=== PATIENT | female | born 1945 | race Caucasian/White ===

== ENCOUNTER 2017-12-31 15:54 | Observation (INO) | payer MEDICARE, OTHER ==
[~2017-12-31] VITALS: Ht 152.4 cm; Wt 78.0 kg
[~2017-12-31 15:54] MED LIST: AMLO5TAB2 PO; ASPI81TA81 PO; CEPH-460 PO; CREON PO; CYMB60CA PO; DIOV320T3 PO; FURO20TA PO; GABA300C5 PO; HUMALOG IMPLANPUMP; KLOR10TA PO; LEVO25TA4 PO; MULT1TAB84 PO; OMEP40CA2 PO; SPIR25TA PO; TIMO0.2517; TRAV0.00 EACH EYE; VITA400T2; [UNRECOGNIZED DRUG - SUPPLY]
[2017-12-31 16:16] VITALS: BP 156/77; PULSE 85; RESP 15; TEMP 97.6; O2SAT 96
[2017-12-31 16:52] LABS: AUTOMATED NEUTROPHIL # 7.2 TH/MM3 (1.8-7.7); BASOPHIL # 0.1 TH/MM3 (0-0.2); BASOPHIL % 1.1 % (0.0-2.0); EOSINOPHIL # 0.5 TH/MM3 (0-0.4); EOSINOPHIL % 4.2 % (0.0-4.0); LYMPH % 15.6 % (9.0-44.0); LYMPHOCYTE # 1.7 TH/MM3 (1.0-4.8); MEAN CELL VOLUME 86.2 FL (80.0-100.0); MEAN CORPUSCULAR HEMOGLOBIN 28.1 PG (27.0-34.0); MEAN CORPUSCULAR HGB CONC 32.6 % (32.0-36.0); MEAN PLATELET VOLUME 9.7 FL (7.0-11.0); MONO % 12.7 % (0.0-8.0); MONOCYTE # 1.4 TH/MM3 (0-0.9); NEUT % 66.4 % (16.0-70.0); PLATELET COUNT 363 TH/MM3 (150-450); RED BLOOD COUNT 5.33 MIL/MM3 (4.00-5.30); RED CELL DISTRIBUTION WIDTH 15.2 % (11.6-17.2); WHITE BLOOD COUNT 10.9 TH/MM3 (4.0-11.0)
--- NOTE | 2017-12-31 17:14 | RADRPT ---
EXAM DATE/TIME: 12/31/2017 16:45 [place] COMPARISON: No previous studies available for comparison. INDICATIONS : Cold symptoms. MEDICAL HISTORY : None. SURGICAL HISTORY : None. ENCOUNTER: Initial ACUITY: 1 day PAIN SCORE: 0/10 LOCATION: Bilateral chest FINDINGS: There is some patchy airspace disease in the right lung with peribronchial thickening . Also peribron chial thickening on the left. No effusion. No pneumothorax. Mildly tortuous aorta. CONCLUSION: 1. Scattered subsegmental air space disease in the lungs, with only right upper lobe with peribronchi al thickening most characteristic of a mild bronchopneumonia/bronchitis. Ramiro De MD on December 31, 2017 at 17:10 Board Certified Radiologist. This report was verified electronically.
--- NOTE | 2017-12-31 17:19 | PD ---
HPI Chief Complaint: Cold / Flu Symptoms Time Seen by Provider: 17:12 Travel History International Travel<30 days: No Contact w/Intl Traveler<30days: No Traveled to known affect area: No History of Present Illness HPI 72-year-old female with history of hypertension, A. fib, diabetes, pancreatectomy, presents emergency department for evaluation of cough and chest congestion worsening over the last 7-10 days. Patient thought she initially just had a cold however over the last 2-3 days she has become more short of breath and developed a chest pain and tightness, mostly associated with coughing. She has had no fever but has been chilled. She has not followed up with her primary care provider. Denies any nausea, vomiting, diarrhea. Patient has no other symptoms to report. PFSH Past Medical History Atrial Fibrillation: Yes Coronary Artery Disease: Yes Diabetes: Yes Social History Tobacco Use: No Allergies-Medications (Allergen,Severity, Reaction): Coded Allergies: No Known Allergies (Verified Allergy, Unknown, 12/31/17) Reported Meds & Prescriptions Reported Meds & Active Scripts Active Tessalon Perles (Benzonatate) 100 Mg Cap 100 Mg PO TID PRN Proair Hfa 8.5 GM Inh (Albuterol Sulfate) 90 Mcg/Act Aer 2 Puff INH Q4H PRN 108 mcg/actuation Zithromax Z-Felipe (Azithromycin) 250 Mg Dspk 250 Mg PO DIRECTED 500 MG (2 tabs) day 1, then 1 tab days 2-5. Cymbalta DR (Duloxetine HCl) 60 Mg Capdr 60 Mg PO DAILY Gabapentin 300 Mg Cap 900 Mg PO HS Reported Multiple Vitamin 1 Tab 1 Tab PO DAILY Klor-Con M20 (Potassium Chloride Microencaps) 20 Meq Tab 20 Meq PO DAILY Diovan (Valsartan) 320 Mg Tab 320 Mg PO DAILY Humalog Inj (Insulin Human Lispro) 1,000 Unit/10 Ml Vial 1-9 Units IMPLANPUMP ACHS PER SLIDING SCALE Amlodipine (Amlodipine Besylate) 5 Mg Tab 5 Mg PO DAILY Omeprazole 40 Mg Cap 40 Mg PO DAILY Travatan Z Opth Drops (Travoprost) 0.004 % Soln 1 Drop EACH EYE HS Levothyroxine (Levothyroxine Sodium) 25 Mcg Tab 25 Mcg PO DAILY Aspir-81 (Aspirin) 81 Mg Tabdr 81 Mg PO DAILY [aquadex] DAILY [creon 5] 1 Cap PO TID Spironolactone 25 Mg Tab 25 Mg PO DAILY Review of Systems Except as stated in HPI: all other systems reviewed are Neg Physical Exam Narrative GENERAL: Well-nourished female patient, in no acute distress SKIN: Focused skin assessment warm/dry. HEAD: Atraumatic. Normocephalic. EYES: Pupils equal and round. No scleral icterus. No injection or drainage. ENT: No nasal bleeding or discharge. Mucous membranes pink and moist. Mild erythematous pharynx. NECK: Trachea midline. No JVD. CARDIOVASCULAR: Regular rate and rhythm. RESPIRATORY: No accessory muscle use. Diminished, coarse breath sounds equal bilaterally. GASTROINTESTINAL: Abdomen soft, non-tender, nondistended. Hepatic and splenic margins not palpable. MUSCULOSKELETAL: No obvious deformities. No clubbing. No cyanosis. 2+ bilateral lower extremity edema which patient states is chronic over the last 2 + years. NEUROLOGICAL: Awake and alert. No obvious cranial nerve deficits. Motor grossly within normal limits. Normal speech. PSYCHIATRIC: Appropriate mood and affect; insight and judgment normal. Data Data Last Documented VS Vital Signs Date Time Temp Pulse Resp B/P (MAP) Pulse Ox O2 Delivery O2 Flow Rate FiO2 12/31/17 17:29 83 20 97 Room Air 12/31/17 17:29 173/87 (115) 12/31/17 16:16 97.6 Orders Orders Electrocardiogram (12/31/17 16:18) Complete Blood Count With Diff (12/31/17 16:18) Basic Metabolic Panel (Bmp) (12/31/17 16:18) Ckmb (Isoenzyme) Profile (12/31/17 16:18) Troponin I (12/31/17 16:18) Chest, Single Ap (12/31/17 16:18) Influenzae A/B Antigen (12/31/17 16:18) Albuterol-Ipratropium Neb (Duoneb Neb) (12/31/17 17:30) Azithromycin (Zithromax) (12/31/17 17:30) CKMB (12/31/17 16:30) CKMB% (12/31/17 16:30) Ketorolac Inj (Toradol Inj) (12/31/17 18:45) Labs Laboratory Tests Test 12/31/17 16:30 White Blood Count 10.9 TH/MM3 Red Blood Count 5.33 MIL/MM3 Hemoglobin 15.0 GM/DL Hematocrit 46.0 % Mean Corpuscular Volume 86.2 FL Mean Corpuscular Hemoglobin 28.1 PG Mean Corpuscular Hemoglobin Concent 32.6 % Red Cell Distribution Width 15.2 % Platelet Count 363 TH/MM3 Mean Platelet Volume 9.7 FL Neutrophils (%) (Auto) 66.4 % Lymphocytes (%) (Auto) 15.6 % Monocytes (%) (Auto) 12.7 % Eosinophils (%) (Auto) 4.2 % Basophils (%) (Auto) 1.1 % Neutrophils # (Auto) 7.2 TH/MM3 Lymphocytes # (Auto) 1.7 TH/MM3 Monocytes # (Auto) 1.4 TH/MM3 Eosinophils # (Auto) 0.5 TH/MM3 Basophils # (Auto) 0.1 TH/MM3 CBC Comment DIFF FINAL Differential Comment Blood Urea Nitrogen 18 MG/DL Creatinine 0.86 MG/DL Random Glucose 157 MG/DL Calcium Level 9.8 MG/DL Sodium Level 138 MEQ/L Potassium Level 4.6 MEQ/L Chloride Level 103 MEQ/L Carbon Dioxide Level 27.8 MEQ/L Anion Gap 7 MEQ/L Estimat Glomerular Filtration Rate 65 ML/MIN Total Creatine Kinase 131 U/L Creatine Kinase MB 1.2 NG/ML Troponin I LESS THAN 0.02 NG/ML MDM Medical Decision Making Medical Screen Exam Complete: Yes Emergency Medical Condition: Yes Medical Record Reviewed: Yes Differential Diagnosis Pneumonia versus influenza versus CHF versus pleuritic pain versus chest wall pain versus less likely ACS Narrative Course 72-year-old female presents emergency department for evaluation of cough and chest congestion with associated chest tightness worsening over the last 10 days more prominent over the last to 3 days. Patient appears well and without distress. Vital signs are stable. Laboratory Tests Test 12/31/17 16:30 White Blood Count 10.9 TH/MM3 Red Blood Count 5.33 MIL/MM3 Hemoglobin 15.0 GM/DL Hematocrit 46.0 % Mean Corpuscular Volume 86.2 FL Mean Corpuscular Hemoglobin 28.1 PG Mean Corpuscular Hemoglobin Concent 32.6 % Red Cell Distribution Width 15.2 % Platelet Count 363 TH/MM3 Mean Platelet Volume 9.7 FL Neutrophils (%) (Auto) 66.4 % Lymphocytes (%) (Auto) 15.6 % Monocytes (%) (Auto) 12.7 % Eosinophils (%) (Auto) 4.2 % Basophils (%) (Auto) 1.1 % Neutrophils # (Auto) 7.2 TH/MM3 Lymphocytes # (Auto) 1.7 TH/MM3 Monocytes # (Auto) 1.4 TH/MM3 Eosinophils # (Auto) 0.5 TH/MM3 Basophils # (Auto) 0.1 TH/MM3 CBC Comment DIFF FINAL Differential Comment Blood Urea Nitrogen 18 MG/DL Creatinine 0.86 MG/DL Random Glucose 157 MG/DL Calcium Level 9.8 MG/DL Sodium Level 138 MEQ/L Potassium Level 4.6 MEQ/L Chloride Level 103 MEQ/L Carbon Dioxide Level 27.8 MEQ/L Anion Gap 7 MEQ/L Estimat Glomerular Filtration Rate 65 ML/MIN Total Creatine Kinase 131 U/L Creatine Kinase MB 1.2 NG/ML Troponin I LESS THAN 0.02 NG/ML Chest x-ray CONCLUSION: 1. Scattered subsegmental air space disease in the lungs, with only right upper lobe with peribronchial thickening most characteristic of a mild bronchopneumonia/bronchitis. Discussed patient with continued physician. Patient will be discharged home with oral antibiotics. 1850 upon discharge, patient's states that he does not feel comfortable taking the patient home. He is concerned about her immunocompromise state. He discussed this with my attending physician who has discussed observation admission with him and what that means. He will contact [facility] for observation admission. Diagnosis Primary Impression: Pneumonia Qualified Codes: J18.1 - Lobar pneumonia, unspecified organism Referrals: Primary Care Physician Patient Instructions: Community Acquired Pneumonia (ED), General Instructions Additional Instructions: Humidified air may help to alleviate symptoms Follow up with primary care provider Return to ED with acute worsening of symptoms Med/Other Pt SpecificInfo: Prescription(s) given Scripts Benzonatate (Tessalon Perles) 100 Mg Cap 100 MG PO TID Y for COUGH, #30 CAP 0 Refills Prov: Tiffanie ChisholmP 12/31/17 Albuterol 8.5 GM Inh (Proair Hfa 8.5 GM Inh) 90 Mcg/Act Aer 2 PUFF INH Q4H Y for SHORTNESS OF BREATH, #1 INHALER 0 Refills 108 mcg/actuation Prov: Tiffanie ChisholmP 12/31/17 Azithromycin (Zithromax Z-Felipe) 250 Mg Dspk 250 MG PO DIRECTED for Infection, #1 DSPK 0 Refills 500 MG (2 tabs) day 1, then 1 tab days 2-5. Prov: Tiffanie Chisholm 12/31/17 Disposition: 01 DISCHARGE HOME Condition: Stable Tiffanie Chisholm Dec 31, 2017 17:19
[2017-12-31 17:24] LABS: BICARBONATE 27.8 MEQ/L (21.0-32.0); BLOOD UREA NITROGEN 18 MG/DL (7-18); CALCIUM 9.8 MG/DL (8.5-10.1); CHLORIDE 103 MEQ/L (98-107); CREATININE 0.86 MG/DL (0.50-1.00); GLOMERULAR FILTRATION RATE 65 ML/MIN (>89); GLUCOSE,RANDOM 157 MG/DL (74-106); SODIUM (NA) 138 MEQ/L (136-145)
[2017-12-31 17:28] LABS: TROPONIN I LESS THAN 0.02 NG/ML (0.02-0.05)
[2017-12-31 17:29] VITALS: BP 173/87; PULSE 77; RESP 20; O2SAT 96
[2017-12-31] MEDS ORDERED: AZITHROMYCIN 250 MG TAB PO ONE (17:30)
[2017-12-31] MEDS: RESP: ALBUTEROL 2.5 MG/IPRATROPIUM 0.5 MG NEB (SCH) INH ×2 (17:44→17:45)
[2017-12-31] MEDS ORDERED: KLOR20TA3 PO (18:07)
[2017-12-31] MEDS ORDERED: MULTTAB67 PO (18:07)
[2017-12-31] MEDS ORDERED: DIOV320T PO (18:07)
[2017-12-31] MEDS ORDERED: ALBUAER3 INH (18:34)
[2017-12-31] MEDS ORDERED: ZITHTAB PO (18:34)
[2017-12-31] MEDS ORDERED: BENZ100 PO (18:34)
[2017-12-31] MEDS ORDERED: KETOROLAC TROMETHAMINE 60 MG/2 ML (IM) VIAL IM ONE (18:45)
[2017-12-31 18:59] VITALS: BP 135/87; PULSE 74; RESP 18; O2SAT 97
[2017-12-31] MEDS ORDERED: KETOROLAC TROMETHAMINE 30 MG/ML (IVP) VIAL IV PUSH ONE (19:00)
[2017-12-31] MEDS ORDERED: NALOXONE HCL 0.4 MG/ML AMP IV PUSH PRN (19:45)
[2017-12-31] MEDS ORDERED: ONDANSETRON HCL 4 MG/2 ML VIAL IVP PRN (19:45)
[2017-12-31] MEDS ORDERED: ACETAMINOPHEN 325 MG TAB PO PRN (19:45)
[2017-12-31] MEDS ORDERED: SODIUM CHLORIDE 0.9% FLUSH 10 ML FLUSH IV FLUSH PRN (19:45)
[2017-12-31] MEDS: cefTRIAXone INJ 1,000 MG in SODIUM CHLORIDE 0.9% INJ 100 ML IV SCH (20:04)
--- NOTE | 2017-12-31 20:47 | HHI.HP ---
HPI Service [facility] Primary Care Physician Lizbet Higuera MD Admission Diagnosis PNA Diagnoses: Travel History International Travel<30 Days: No Contact w/Intl Traveler <30 Da: No Traveled to Known Affected Are: No History of Present Illness 72-year-old female with a past medical history significant for type 1 diabetes, hypertension, neuropathy, hypothyroidism and unspecified cardiac arrhythmia presents to the emergency department with evaluation of pneumonia symptoms. The patient has a history of multiple pneumonias requiring hospitalization. She reports she initially had upper respiratory symptoms that began on Monday. She states her symptoms worsen today with shortness of breath, productive cough and fever/chills. She reports chest pain that is worse with deep inspiration or coughing. She denies any nausea/vomiting/diarrhea. No lateralizing signs/ symptoms. Review of Systems Except as stated in HPI: all other systems reviewed are Neg Past Family Social History Past Medical History Type 1 diabetes mellitus with insulin pump Hypertension Neuropathy Hypothyroidism Unspecified cardiac arrhythmia Past Surgical History Islet cell transplant Hysterectomy Right knee surgery 2 Spinal fusion Cholecystectomy Reported Medications Reported Meds & Active Scripts Active Tessalon Perles (Benzonatate) 100 Mg Cap 100 Mg PO TID PRN Proair Hfa 8.5 GM Inh (Albuterol Sulfate) 90 Mcg/Act Aer 2 Puff INH Q4H PRN 108 mcg/actuation Zithromax Z-Felipe (Azithromycin) 250 Mg Dspk 250 Mg PO DIRECTED 500 MG (2 tabs) day 1, then 1 tab days 2-5. Cymbalta DR (Duloxetine HCl) 60 Mg Capdr 60 Mg PO DAILY Gabapentin 300 Mg Cap 900 Mg PO HS Reported Multiple Vitamin 1 Tab 1 Tab PO DAILY Klor-Con M20 (Potassium Chloride Microencaps) 20 Meq Tab 20 Meq PO DAILY Diovan (Valsartan) 320 Mg Tab 320 Mg PO DAILY Humalog Inj (Insulin Human Lispro) 1,000 Unit/10 Ml Vial 1-9 Units IMPLANPUMP ACHS PER SLIDING SCALE Amlodipine (Amlodipine Besylate) 5 Mg Tab 5 Mg PO DAILY Omeprazole 40 Mg Cap 40 Mg PO DAILY Travatan Z Opth Drops (Travoprost) 0.004 % Soln 1 Drop EACH EYE HS Levothyroxine (Levothyroxine Sodium) 25 Mcg Tab 25 Mcg PO DAILY Aspir-81 (Aspirin) 81 Mg Tabdr 81 Mg PO DAILY [aquadex] DAILY [creon 5] 1 Cap PO TID Spironolactone 25 Mg Tab 25 Mg PO DAILY Allergies: Coded Allergies: No Known Allergies (Verified Allergy, Unknown, 12/31/17) Family History Father with heart disease. Mother with diabetes mellitus. Social History Denies tobacco. Occasional alcohol. Denies illicit drugs. Physical Exam Vital Signs Vital Signs Date Time Temp Pulse Resp B/P (MAP) Pulse Ox O2 Delivery O2 Flow Rate FiO2 12/31/17 18:59 74 18 135/87 (103) 97 Room Air 12/31/17 17:29 83 20 97 Room Air 12/31/17 17:29 77 20 173/87 (115) 96 Room Air 12/31/17 16:16 97.6 85 15 156/77 (103) 96 Physical Exam GENERAL: female sitting up in bed SKIN: No rashes, ecchymoses or lesions. Cool and dry. HEAD: Atraumatic. Normocephalic. No temporal or scalp tenderness. EYES: Pupils equal round and reactive. Extraocular motions intact. No scleral icterus. No injection or drainage. ENT: Nose without bleeding, purulent drainage or septal hematoma. Throat without erythema, tonsillar hypertrophy or exudate. Uvula midline. Airway patent. NECK: Trachea midline. No JVD or lymphadenopathy. Supple, nontender, no meningeal signs. CARDIOVASCULAR: Regular rate and rhythm without murmurs, gallops, or rubs. RESPIRATORY: Bilateral wheezes and rhonchi. GASTROINTESTINAL: Abdomen soft, non-tender, nondistended. No hepato-splenomegaly , or palpable masses. MUSCULOSKELETAL: Extremities without clubbing, cyanosis, or edema. No joint tenderness, effusion, or edema noted. No calf tenderness. NEUROLOGICAL: Awake and alert. Cranial nerves II through XII intact. Motor and sensory grossly within normal limits. Normal speech. Laboratory Laboratory Tests Test 12/31/17 16:30 White Blood Count 10.9 Red Blood Count 5.33 Hemoglobin 15.0 Hematocrit 46.0 Mean Corpuscular Volume 86.2 Mean Corpuscular Hemoglobin 28.1 Mean Corpuscular Hemoglobin Concent 32.6 Red Cell Distribution Width 15.2 Platelet Count 363 Mean Platelet Volume 9.7 Neutrophils (%) (Auto) 66.4 Lymphocytes (%) (Auto) 15.6 Monocytes (%) (Auto) 12.7 Eosinophils (%) (Auto) 4.2 Basophils (%) (Auto) 1.1 Neutrophils # (Auto) 7.2 Lymphocytes # (Auto) 1.7 Monocytes # (Auto) 1.4 Eosinophils # (Auto) 0.5 Basophils # (Auto) 0.1 CBC Comment DIFF FINAL Differential Comment Blood Urea Nitrogen 18 Creatinine 0.86 Random Glucose 157 Calcium Level 9.8 Sodium Level 138 Potassium Level 4.6 Chloride Level 103 Carbon Dioxide Level 27.8 Anion Gap 7 Estimat Glomerular Filtration Rate 65 Total Creatine Kinase 131 Creatine Kinase MB 1.2 Troponin I LESS THAN 0.02 Date/Time Source Procedure Growth Status 12/31/17 16:30 Nasal Washing Influenza Types A,B Antigen (LARA) Pending Received Result Diagram: 12/31/17 1630 12/31/17 1630 Caprini VTE Risk Assessment Caprini VTE Risk Assessment: Mod/High Risk (score >= 2) Caprini Risk Assessment Model Point Value = 1 Point Value = 2 Point Value = 3 Point Value = 5 Age 41-60 Minor surgery BMI > 25 kg/m2 Swollen legs Varicose veins or History of unexplained or recurrent spontaneous Oral contraceptives or hormone replacement Sepsis (< 1 month) Serious lung disease, including pneumonia (< 1 month) Abnormal pulmonary function Acute myocardial infarction Congestive heart failure (< 1 month) History of inflammatory bowel disease Medical patient at bed rest Age 61-74 Arthroscopic surgery Major open surgery (> 45 min) Laparoscopic surgery (> 45 min) Malignancy Confined to bed (> 72 hours) Immobilizing plaster cast Central venous access Age >= 75 History of VTE Family history of VTE Factor V Leiden Prothrombin [id number] Lupus anticoagulant Anticardiolipin antibodies Elevated serum homocysteine Heparin-induced thrombocytopenia Other congenital or acquired thrombophilia Stroke (< 1 month) Elective arthroplasty Hip, pelvis, or leg fracture Acute spinal cord injury (< 1 month) Prophylaxis Regimen Total Risk Factor Score Risk Level Prophylaxis Regimen 0-1 Low Early ambulation 2 Moderate Order ONE of the following: *Sequential Compression Device (SCD) *Heparin 5000 units SQ BID 3-4 Higher Order ONE of the following medications: *Heparin 5000 units SQ TID *Enoxaparin/Lovenox 40 mg SQ daily (WT < 150 kg, CrCl > 30 mL/min) *Enoxaparin/Lovenox 30 mg SQ daily (WT < 150 kg, CrCl > 10-29 mL/min) *Enoxaparin/Lovenox 30 mg SQ BID (WT < 150 kg, CrCl > 30 mL/min) AND/OR *Sequential Compression Device (SCD) 5 or more Highest Order ONE of the following medications: *Heparin 5000 units SQ TID (Preferred with Epidurals) *Enoxaparin/Lovenox 40 mg SQ daily (WT < 150 kg, CrCl > 30 mL/min) *Enoxaparin/Lovenox 30 mg SQ daily (WT < 150 kg, CrCl > 10-29 mL/min) *Enoxaparin/Lovenox 30 mg SQ BID (WT < 150 kg, CrCl > 30 mL/min) AND *Sequential Compression Device (SCD) Assessment and Plan Assessment and Plan Assessment/plan: 1. Community-acquired pneumonia Chest x-ray significant for bronchopneumonia versus bronchitis, personally reviewed Patient wishes to stay in the hospital overnight because she is concerned she will decline Azithromycin/Rocephin DuoNeb's Anticipate discharge to home tomorrow 2. Type 1 diabetes mellitus with insulin pump Monitor blood glucose 3. Hypothyroidism/arrhythmia/neuropathy Continue home medications FEN Heart heathy diet Electrolytes: Monitor and replete when necessary Heparin Precious Wright MD Dec 31, 2017 20:47
[2017-12-31] MEDS: SODIUM CHLORIDE 0.9% FLUSH 10 ML FLUSH IV FLUSH SCH (21:00)
[2017-12-31 23:56] VITALS: BP 142/90; PULSE 78; RESP 18; TEMP 97.9; O2SAT 96
[2017-12-31] MEDS: HEPARIN SODIUM - SQ 10,000 UNITS/ML VIAL SQ SCH (23:56)
[2018-01-01] MEDS: HEPARIN SODIUM - SQ 10,000 UNITS/ML VIAL SQ SCH ×3 (05:38→21:29)
[2018-01-01 08:50] VITALS: BP 123/84; PULSE 76; RESP 16; TEMP 98.1; O2SAT 95
[2018-01-01] MEDS ORDERED: PNEUMOCOCCAL POLYVALENT INJ 25 MCG/0.5 ML SYR IM ONE (09:00)
[2018-01-01 10:40] LABS: AUTOMATED NEUTROPHIL # 5.8 TH/MM3 (1.8-7.7); BASOPHIL # 0.1 TH/MM3 (0-0.2); BASOPHIL % 0.7 % (0.0-2.0); EOSINOPHIL # 0.5 TH/MM3 (0-0.4); EOSINOPHIL % 5.1 % (0.0-4.0); HEMATOCRIT 45.4 % (35.0-46.0); HEMOGLOBIN 14.6 GM/DL (11.6-15.3); LYMPH % 20.6 % (9.0-44.0); LYMPHOCYTE # 1.9 TH/MM3 (1.0-4.8); MEAN CORPUSCULAR HEMOGLOBIN 27.7 PG (27.0-34.0); MEAN CORPUSCULAR HGB CONC 32.2 % (32.0-36.0); MEAN PLATELET VOLUME 9.4 FL (7.0-11.0); MONO % 11.5 % (0.0-8.0); MONOCYTE # 1.1 TH/MM3 (0-0.9); NEUT % 62.1 % (16.0-70.0); PLATELET COUNT 354 TH/MM3 (150-450); RED BLOOD COUNT 5.28 MIL/MM3 (4.00-5.30); RED CELL DISTRIBUTION WIDTH 14.8 % (11.6-17.2); WHITE BLOOD COUNT 9.4 TH/MM3 (4.0-11.0)
[2018-01-01] MEDS ORDERED: GLUCAGON 1 MG/ML VIAL OTHER PRN (10:45)
[2018-01-01] MEDS ORDERED: DEXTROSE 50% IN WATER 50 ML VIAL(D50) IV PUSH PRN (10:45)
[2018-01-01 11:01] LABS: BICARBONATE 25.2 MEQ/L (21.0-32.0); CALCIUM 9.2 MG/DL (8.5-10.1); CREATININE 0.7 MG/DL (0.50-1.00)
--- NOTE | 2018-01-01 11:24 | EKG ---
Date Performed: 12/31/2017 Time Performed: 17:25:32 PTAGE: 72 years EKG: Sinus rhythm LEFT ANTERIOR FASCICULAR BLOCK ABNORMAL ECG NO PREVIOUS TRACING DOCTOR: Fouzia Thakur Interpretating Date/Time 01/01/2018 11:22:53
[2018-01-01 11:39] VITALS: BP 154/83; PULSE 79; RESP 12; TEMP 98.4; O2SAT 92
[2018-01-01] MEDS ORDERED: INSULIN ASPART SUPPLEMENTAL SCALE SQ SCH (12:00)
[2018-01-01] MEDS: SODIUM CHLORIDE 0.9% FLUSH 10 ML FLUSH IV FLUSH SCH ×2 (12:14→21:27)
--- NOTE | 2018-01-01 14:43 | HHI.PR ---
Subjective Remarks In bed appears with sob and wheezing. Patient says she is coughing more and has yellow/greenish sputum/ Says she has chest pain with breathing from too much cough. No fever or chills overnight. Some nausea but able to keep down food. No v/d/c. Objective Vitals Vital Signs Date Time Temp Pulse Resp B/P (MAP) Pulse Ox O2 Delivery O2 Flow Rate FiO2 01/01/18 11:39 98.4 79 12 154/83 (106) 92 01/01/18 08:50 98.1 76 16 123/84 (97) 95 12/31/17 23:56 97.9 78 18 142/90 (107) 96 12/31/17 20:39 12/31/17 18:59 74 18 135/87 (103) 97 Room Air 12/31/17 17:29 83 20 97 Room Air 12/31/17 17:29 77 20 173/87 (115) 96 Room Air 12/31/17 16:16 97.6 85 15 156/77 (103) 96 I/O 12/31/17 12/31/17 12/31/17 01/01/18 01/01/18 01/01/18 07:00 15:00 23:00 07:00 15:00 23:00 Intake Total 100 ml Balance 100 ml Intake IV Total 100 ml # Voids 1 Result Diagram: 01/01/18 1018 01/01/18 1018 Imaging Last Impressions Chest X-Ray 12/31/17 1618 Signed Impressions: Service Date/Time: Sunday, December 31, 2017 16:45 - CONCLUSION: 1. Scattered subsegmental air space disease in the lungs, with only right upper lobe with peribronchial thickening most characteristic of a mild bronchopneumonia/bronchitis. Ramiro De MD Objective Remarks GENERAL: female sitting up in bed CARDIOVASCULAR: Regular rate and rhythm without murmurs, gallops, or rubs. RESPIRATORY: Bilateral wheezes and rhonchi. GASTROINTESTINAL: Abdomen soft, non-tender, nondistended. No hepato-splenomegaly , or palpable masses. MUSCULOSKELETAL: Extremities without clubbing, cyanosis, or edema. No joint tenderness, effusion, or edema noted. No calf tenderness. NEUROLOGICAL: Awake and alert. Cranial nerves II through XII intact. Motor and sensory grossly within normal limits. Normal speech. A/P Assessment and Plan Community-acquired pneumonia Pleuritic chest pain Chest x-ray significant for bronchopneumonia versus bronchitis, personally reviewed Patient wishes to stay in the hospital overnight because she is concerned she will decline Azithromycin/Rocephin Not improving. Add IS, DuoNeb's scheduled and PRN for sob/wheezing. Add Add mucinex Add tylenol /codein Monitor O2 sat, give O2 by NC if need to keep O2 sat > 94% Type 1 diabetes mellitus with insulin pump Monitor blood glucose Hypothyroidism/arrhythmia/neuropathy Continue home medications FEN Heart heathy diet Electrolytes: Monitor and replete when necessary Heparin Discussed with the patient, nurse, family at bedside Possible discharge tomorrow if improved Tiara Rooney MD Jan 01, 2018 14:43
[2018-01-01] MEDS ORDERED: ACETAMINOPHEN/CODEINE ELIX 120 MG/12 MG/5 ML CUP PO PRN (14:45)
[2018-01-01] MEDS ORDERED: RESP: ALBUTEROL 2.5 MG/IPRATROPIUM 0.5 MG NEB (PRN) NEB (14:45)
[2018-01-01] MEDS ORDERED: ENALAPRILAT 2.5 MG/2 ML VIAL IV PUSH PRN (15:00)
[2018-01-01 15:15] VITALS: BP 129/81; PULSE 86; RESP 12; TEMP 98.9; O2SAT 93
[2018-01-01] MEDS: amLODIPine BESYLATE 5 MG TAB PO SCH (15:53)
[2018-01-01] MEDS: ASPIRIN EC 81 MG TABEC PO SCH (15:53)
[2018-01-01] MEDS: PANTOPRAZOLE SOD 40 MG DELAYED RELEASE TAB PO SCH (15:53)
[2018-01-01] MEDS: DULoxetine HCl DR 60 MG CAP PO SCH (15:53)
[2018-01-01] MEDS: VALSARTAN 160 MG TAB PO SCH (15:53)
[2018-01-01] MEDS: LEVOTHYROXINE SODIUM 25 MCG TAB PO SCH (15:53)
[2018-01-01] MEDS: MULTIVITAMIN TAB PO SCH (15:53)
[2018-01-01] MEDS: SPIRONOLACTONE 25 MG TAB PO SCH (15:54)
[2018-01-01] MEDS ORDERED: [UNRECOGNIZED DRUG - OTHER] SCH (17:00)
[2018-01-01] MEDS: RESP: ALBUTEROL 2.5 MG/IPRATROPIUM 0.5 MG NEB (SCH) NEB ×2 (17:40→21:14)
[2018-01-01] MEDS: AZITHROMYCIN 250 MG TAB PO SCH (18:18)
[2018-01-01] MEDS: MISCELLANEOUS NURSING INFORMATION SCH ×2 (18:46→21:00)
[2018-01-01 20:41] VITALS: BP 127/79; PULSE 83; RESP 18; TEMP 99; O2SAT 92
[2018-01-01] MEDS ORDERED: GABAPENTIN 300 MG CAP PO SCH (21:00)
[2018-01-01] MEDS: cefTRIAXone INJ 1,000 MG in SODIUM CHLORIDE 0.9% INJ 100 ML IV SCH (21:26)
[2018-01-01] MEDS: guaiFENesin E.R. 600 MG TAB PO SCH (21:27)
[2018-01-01] MEDS ORDERED: ACETAMINOPHEN/HYDROcodone 325 MG/5 MG TAB PO ONE (22:00)
[2018-01-02] MEDS: HEPARIN SODIUM - SQ 10,000 UNITS/ML VIAL SQ SCH (05:40)
[2018-01-02] MEDS: LEVOTHYROXINE SODIUM 25 MCG TAB PO SCH (05:40)
[2018-01-02] MEDS: RESP: ALBUTEROL 2.5 MG/IPRATROPIUM 0.5 MG NEB (SCH) NEB (07:23)
[2018-01-02 07:41] LABS: HEMATOCRIT 41.9 % (35.0-46.0); HEMOGLOBIN 13.6 GM/DL (11.6-15.3); MEAN CELL VOLUME 85.6 FL (80.0-100.0); MEAN CORPUSCULAR HEMOGLOBIN 27.9 PG (27.0-34.0); MEAN CORPUSCULAR HGB CONC 32.6 % (32.0-36.0); PLATELET COUNT 320 TH/MM3 (150-450); RED BLOOD COUNT 4.89 MIL/MM3 (4.00-5.30); WHITE BLOOD COUNT 10.4 TH/MM3 (4.0-11.0)
[2018-01-02] MEDS: MISCELLANEOUS NURSING INFORMATION SCH (08:00)
[2018-01-02 08:03] VITALS: BP 119/57; PULSE 84; RESP 14; TEMP 98.5; O2SAT 94
[2018-01-02 08:05] LABS: BICARBONATE 24.9 MEQ/L (21.0-32.0); CALCIUM 8.9 MG/DL (8.5-10.1); CREATININE 0.8 MG/DL (0.50-1.00)
[2018-01-02] MEDS: MULTIVITAMIN TAB PO SCH (09:09)
[2018-01-02] MEDS: VALSARTAN 160 MG TAB PO SCH (09:09)
[2018-01-02] MEDS: SPIRONOLACTONE 25 MG TAB PO SCH (09:10)
[2018-01-02] MEDS: guaiFENesin E.R. 600 MG TAB PO SCH (09:10)
[2018-01-02] MEDS: DULoxetine HCl DR 60 MG CAP PO SCH (09:10)
[2018-01-02] MEDS: AZITHROMYCIN 250 MG TAB PO SCH (09:10)
[2018-01-02] MEDS: ASPIRIN EC 81 MG TABEC PO SCH (09:10)
[2018-01-02] MEDS: amLODIPine BESYLATE 5 MG TAB PO SCH (09:10)
[2018-01-02] MEDS ORDERED: HYDR-3516 PO (09:11)
--- NOTE | 2018-01-02 09:11 | HHI.DS ---
Discharge Summary Admission Date Dec 31, 2017 at 19:48 Discharge Date: Jan 02, 2018 Admitting Diagnosis PNA (1) Insulin pump in place ICD Code: Z96.41 - Presence of insulin pump (external) (internal) Status: Acute (2) Hypertension ICD Code: I10 - Essential (primary) hypertension Status: Acute (3) Hyperlipidemia ICD Code: E78.5 - Hyperlipidemia, unspecified Status: Acute (4) Diabetes mellitus, type II ICD Code: E11.9 - Type 2 diabetes mellitus without complications Status: Acute (5) Swelling of lower extremity ICD Code: M79.89 - Other specified soft tissue disorders Status: Acute (6) Neuropathy ICD Code: G62.9 - Polyneuropathy, unspecified Status: Acute (7) Productive cough ICD Code: R05 - Cough Status: Acute (8) Cardiomegaly ICD Code: I51.7 - Cardiomegaly Status: Acute (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 The patient has a history of multiple pneumonias requiring hospitalization. She reports she initially had upper respiratory symptoms that began on Monday. She states her symptoms worsen today with shortness of breath, productive cough and fever/chills. She reports chest pain that is worse with deep inspiration or coughing. She denies any nausea/vomiting/diarrhea. No lateralizing signs/ symptoms. CBC/BMP: 01/02/18 0621 01/02/18 0621 Significant Findings Laboratory Tests Test 12/31/17 16:30 01/01/18 10:18 01/02/18 06:21 Red Blood Count 5.33 MIL/MM3 (4.00-5.30) Monocytes (%) (Auto) 12.7 % (0.0-8.0) 11.5 % (0.0-8.0) Eosinophils (%) (Auto) 4.2 % (0.0-4.0) 5.1 % (0.0-4.0) Monocytes # (Auto) 1.4 TH/MM3 (0-0.9) 1.1 TH/MM3 (0-0.9) Eosinophils # (Auto) 0.5 TH/MM3 (0-0.4) 0.5 TH/MM3 (0-0.4) Random Glucose 157 MG/DL (74-106) 137 MG/DL (74-106) 227 MG/DL (74-106) Estimat Glomerular Filtration Rate 65 ML/MIN (>89) 82 ML/MIN (>89) 71 ML/MIN (>89) Troponin I LESS THAN 0.02 NG/ML Imaging Last Impressions Chest X-Ray 12/31/17 1618 Signed Impressions: Service Date/Time: Sunday, December 31, 2017 16:45 - CONCLUSION: 1. Scattered subsegmental air space disease in the lungs, with only right upper lobe with peribronchial thickening most characteristic of a mild bronchopneumonia/bronchitis. Ramiro De MD PE at Discharge GENERAL: female sitting up in bed CARDIOVASCULAR: Regular rate and rhythm without murmurs, gallops, or rubs. RESPIRATORY: Bilateral wheezes and rhonchi. GASTROINTESTINAL: Abdomen soft, non-tender, nondistended. No hepato-splenomegaly , or palpable masses. MUSCULOSKELETAL: Extremities without clubbing, cyanosis, or edema. No joint tenderness, effusion, or edema noted. No calf tenderness. NEUROLOGICAL: Awake and alert. Cranial nerves II through XII intact. Motor and sensory grossly within normal limits. Normal speech. Hospital Course Community-acquired pneumonia Pleuritic chest pain Headaches Chest x-ray significant for bronchopneumonia versus bronchitis, personally reviewed Patient wishes to stay in the hospital overnight because she is concerned she will decline Azithromycin/Rocephin Not improving. Add IS, DuoNeb's scheduled and PRN for sob/wheezing. Add Add mucinex Add tylenol /codein, says does not work, will discontinue. Add [place] p.o. Monitor O2 sat, give O2 by NC if need to keep O2 sat > 94% Type 1 diabetes mellitus with insulin pump Monitor blood glucose Hypothyroidism/arrhythmia/neuropathy Continue home medications FEN Heart heathy diet Electrolytes: Monitor and replete when necessary Heparin Discussed with the patient, nurse, family at bedside Patient is improved. She is discharged home in stable condition to follow-up as outpatient with PCP and consultants. Pt Condition on Discharge: Stable Discharge Disposition: Discharge Home Discharge Time: > 30 minutes Discharge Instructions DIET: Follow Instructions for: Heart Healthy Diet Activities you can perform: Regular-No Restrictions Follow up Referrals: PCP Follow-up - 2-3 Days New Medications: Cefuroxime (Ceftin) 250 Mg Tab 250 MG PO BID for infection , #10 TAB Hydrocodone/Acetaminophen (Hydrocodone-Acetamin 5-325 mg) 5 Mg-325 Mg Tablet 1 TAB PO Q6H PRN for severe pain , #10 TAB Continued Medications: Albuterol 8.5 GM Inh (Proair Hfa 8.5 GM Inh) 90 Mcg/Act Aer 2 PUFF INH Q4H PRN for SHORTNESS OF BREATH, #1 INHALER 0 Refills 108 mcg/actuation Amlodipine (Amlodipine) 5 Mg Tab 5 MG PO DAILY for Blood Pressure Management, #90 TAB [address] (Aspir-81) 81 Mg Tabdr 81 MG PO DAILY Benzonatate (Tessalon Perles) 100 Mg Cap 100 MG PO TID PRN for COUGH, #30 CAP [address] (Cymbalta DR) 60 Mg Capdr 60 MG PO DAILY, #90 CAP 1 Refill Gabapentin (Gabapentin) 300 Mg Cap 900 MG PO HS, #270 CAP 1 Refill Insulin Lispro (Human) Inj (Humalog Inj) 1,000 Unit/10 Ml Vial 1-9 UNITS IMPLANPUMP ACHS for Blood Sugar Management, #1 VIAL 0 Refills PER SLIDING SCALE Levothyroxine (Levothyroxine) 25 Mcg Tab 25 MCG PO DAILY for Thyroid, #90 TAB 0 Refills Multiple Vitamin (Multiple Vitamin) 1 Tab 1 TAB PO DAILY for Nutritional Supplement, TAB 0 Refills Omeprazole (Omeprazole) 40 Mg Cap 40 MG PO DAILY, #90 CAP 0 Refills Potassium Chloride Microencaps (Klor-Con M20) 20 Meq Tab 20 MEQ PO DAILY for Electrolyte Replacement, #30 TAB 0 Refills Spironolactone (Spironolactone) 25 Mg Tab 25 MG PO DAILY, #90 TAB 0 Refills Travoprost Opth Drops (Travatan Z Opth Drops) 0.004 % Soln 1 DROP EACH EYE HS for Glaucoma, #1 BOTTLE 0 Refills Valsartan (Diovan) 320 Mg Tab 320 MG PO DAILY, #30 TAB 0 Refills [aquadex] () DAILY [creon 5] () 1 CAP PO TID Discontinued Medications: Azithromycin (Zithromax Z-Felipe) 250 Mg Dspk 250 MG PO DIRECTED for Infection, #1 DSPK 0 Refills 500 MG (2 tabs) day 1, then 1 tab days 2-5. Tiara Rooney MD Jan 02, 2018 09:11
[2018-01-02] MEDS ORDERED: CEFU1TAB18 PO (09:14)
[2018-01-02] MEDS ORDERED: ACETAMINOPHEN/HYDROcodone 325 MG/5 MG TAB PO PRN (09:15)
[2018-01-02] MEDS ORDERED: IBUPROFEN 200 MG TAB PO PRN (09:15)
[2018-01-02] MEDS ORDERED: ACETAMINOPHEN 1000 MG/100 ML 100 ML IV ONE (09:15)
[2018-01-02] MEDS: PANTOPRAZOLE SOD 40 MG DELAYED RELEASE TAB PO SCH (09:17)
[2018-01-02] MEDS: SODIUM CHLORIDE 0.9% FLUSH 10 ML FLUSH IV FLUSH SCH (09:20)
--- NOTE | 2018-01-02 11:32 | HHI.PR ---
Subjective Remarks Had some mild headaches in the morning. No much wheezing. Still with coughing no much production of cough. No fever or chills overnight. Improved sound. Objective Vitals Vital Signs Date Time Temp Pulse Resp B/P (MAP) Pulse Ox O2 Delivery O2 Flow Rate FiO2 01/02/18 08:03 98.5 84 14 119/57 (77) 94 01/01/18 20:41 99.0 83 18 127/79 (95) 92 01/01/18 15:15 98.9 86 12 129/81 (97) 93 01/01/18 11:39 98.4 79 12 154/83 (106) 92 I/O 01/01/18 01/01/18 01/01/18 01/02/18 01/02/18 01/02/18 07:00 15:00 23:00 07:00 15:00 23:00 # Voids 2 Result Diagram: 01/02/18 0621 01/02/18 0621 Imaging Last Impressions Chest X-Ray 12/31/17 1618 Signed Impressions: Service Date/Time: Sunday, December 31, 2017 16:45 - CONCLUSION: 1. Scattered subsegmental air space disease in the lungs, with only right upper lobe with peribronchial thickening most characteristic of a mild bronchopneumonia/bronchitis. Ramiro De MD Objective Remarks GENERAL: female sitting up in bed CARDIOVASCULAR: Regular rate and rhythm without murmurs, gallops, or rubs. RESPIRATORY: Bilateral wheezes and rhonchi. GASTROINTESTINAL: Abdomen soft, non-tender, nondistended. No hepato-splenomegaly , or palpable masses. MUSCULOSKELETAL: Extremities without clubbing, cyanosis, or edema. No joint tenderness, effusion, or edema noted. No calf tenderness. NEUROLOGICAL: Awake and alert. Cranial nerves II through XII intact. Motor and sensory grossly within normal limits. Normal speech. A/P Assessment and Plan Community-acquired pneumonia Pleuritic chest pain Headaches Chest x-ray significant for bronchopneumonia versus bronchitis, personally reviewed Patient wishes to stay in the hospital overnight because she is concerned she will decline Azithromycin/Rocephin Not improving. Add IS, DuoNeb's scheduled and PRN for sob/wheezing. Add Add mucinex Add tylenol /codein, says does not work, will discontinue. Add [place] p.o. Monitor O2 sat, give O2 by [place] if need to keep O2 sat > 94% Type 1 diabetes mellitus with insulin pump Monitor blood glucose Hypothyroidism/arrhythmia/neuropathy Continue home medications FEN Heart heathy diet Electrolytes: Monitor and replete when necessary Heparin Discussed with the patient, nurse, family at bedside Patient is improved. She is discharged home in stable condition to follow-up as outpatient with PCP and consultants. Tiara Rooney MD Jan 02, 2018 11:31
== END 2018-01-02 12:54 | disposition home or self-care (01) ==
LOC: NEPE 15:54 → NEDH 19:48 → NEPGCP 20:38
PROVIDERS: ADMIT Hospitalist; ATTEND Hospitalist
DX: J18.1 Lobar pneumonia, unspecified organism (principal); I25.10 Atherosclerotic heart disease of native coronary artery without angina pectoris; I11.9 Hypertensive heart disease without heart failure; I44.4 Left anterior fascicular block; R94.31 Abnormal electrocardiogram [ECG] [EKG]; R51 Headache; R11.0 Nausea; E10.40 Type 1 diabetes mellitus with diabetic neuropathy, unspecified; E78.5 Hyperlipidemia, unspecified; E03.9 Hypothyroidism, unspecified; Z79.899 Other long term (current) drug therapy; Z79.82 Long term (current) use of aspirin; Z98.1 Arthrodesis status; Z23 Encounter for immunization
CPT/HCPCS: 71045; 80048; 82550; 82552; 82948; 84484; 85025; 85027; 87070; 87077; 87186; 87205; 87804; 90732; 93005; 94150; 94640; 94664; 96365; 96366; 96372; 96375; 99285; G0009; G0378; J0131; J0696; J1644; J1815; J1885; J2405; 90471